=== PATIENT | female | born 1960 | race Caucasian/White ===

== ENCOUNTER 2022-01-29 01:15 | Emergency (ER) | payer OTHER, MEDICAID ==
[~2022-01-29] VITALS: Ht 170.2 cm; Wt 190.5 kg
[2022-01-29 01:18] VITALS: BP 113/59
--- NOTE | 2022-01-29 01:20 | NUR ---
PT BIBA BLS TO BED 06
--- NOTE | 2022-01-29 01:59 | NUR ---
61YR OLD FEMALE BIB EMS C/O CP ABD BACK PAIN . ABD MID GASTRIC PAIN STARTED 2 DAYS AGO WITH DIARRHEA AND VOMITING . 3/10 PAIN. PT STATES ABD PAIN RADIATES TO CHEST AND BACK DENIES SOB . 3/10 PAIN. RESP EVEN AND UNLABORED. SKIN PINK AND DRY. ON BEDSIDE MONITOR. HOB ELEVATED. SIDE RAILS UP X2 BED AT LOWEST POSITION
[2022-01-29] MEDS ORDERED: ONDANSETRON 4 MG/2 ML VIAL IVP ONE (03:05)
[2022-01-29] MEDS ORDERED: ASPIRIN 325 MG TAB PO ONE (03:05)
[2022-01-29 03:19] LABS: BASOPHILS # (AUTO) 0.1 K/uL (0.00-0.22); BASOPHILS % (AUTO) 0.4 % (0.0-2.0); EOSINOPHILS # (AUTO) 0.4 K/uL (0-0.4); EOSINOPHILS % (AUTO) 3.3 % (0.0-4.0); HEMATOCRIT 38.8 % (36-48); HEMOGLOBIN 12.6 g/dL (12.0-16.0); LYMPHOCYTES # (AUTO) 4.2 K/uL (2.5-16.5); LYMPHOCYTES % (AUTO) 34.1 % (20.5-51.1); MEAN CORPUSCULAR HEMOGLOBIN 29 pg (27-31); MEAN CORPUSCULAR HGB CONC 33 g/dL (33-37); MEAN CORPUSCULAR VOLUME 88.4 fL (80-94); MONOCYTES # (AUTO) 1.2 K/uL (0.8-1.0); MONOCYTES % (AUTO) 9.4 % (1.7-9.3); NEUTROPHILS # (AUTO) 6.5 K/uL (1.8-7.7); NEUTROPHILS % (AUTO) 52.8 % (42.2-75.2); PLATELET COUNT (AUTO) 174 K/uL (140-450); RED BLOOD CELL COUNT(AUTO) 4.39 MIL/uL (4.20-5.40); RED CELL DISTRIBUTION WIDTH 14.7 % (11.6-13.7); WHITE BLOOD COUNT (AUTO) 12.3 K/uL (4.8-10.8)
[2022-01-29 03:35] LABS: PROTHROMBIN TIME 9.6 secs (10.8-13.4)
[2022-01-29 04:07] LABS: ALBUMIN 2.9 g/dL (3.4-5.0); ANION GAP 16.9 (8-16); CARBON DIOXIDE 24.9 mmol/L (21-32); CREATININE 1.2 mg/dL (0.6-1.3); POTASSIUM 3.8 mmol/L (3.5-5.1); TOTAL BILIRUBIN 0.3 mg/dL (0.0-1.0)
--- NOTE | 2022-01-29 05:01 | NUR ---
PT IS SLEEPING RESP EVEN AND UNLABORED. PENDING TELEPSYCH MD. TELEMED SCREEN AT BEDSIDE
--- NOTE | 2022-01-29 05:30 | NUR ---
GIMP TACKER AT BEDSIDE
--- NOTE | 2022-01-29 05:45 | NUR ---
PT RESTING IN BED RESP EVEN AND UNLABORED. AM LABS DRAWN AT BEDSIDE. PT ON BEDSIDE MONITOR. WILL CONTINUE TO MONITOR PATIENT
[2022-01-29] MEDS ORDERED: AZITHROMYCIN 250 MG TAB PO ONE (05:55)
--- NOTE | 2022-01-29 07:30 | NUR ---
REPORT RECEIVED FROM SHENA GONSALEZ. ASSUMED CARE AT THIS TIME
[2022-01-29] MEDS ORDERED: FAMO-92 PO (07:45)
[2022-01-29] MEDS ORDERED: ONDA-188 SL (07:46)
--- NOTE | 2022-01-29 09:41 | NUR ---
PT REPORTS NEW ONSET OF 9/10 SHARP CHEST PAIN. MD MADE AWARE
[2022-01-29 10:15] VITALS: BP 138/85
--- NOTE | 2022-01-29 11:10 | NUR ---
PT ROOM MATE TO TIME STUDY ENGINEER PT
--- NOTE | 2022-01-29 11:17 | NUR ---
Patient discharged with v/s stable. Written and verbal after care instructions FOR NONSPECIFIC CHEST PAIN AND ABDOMINAL PAIN given and explained. Patient alert, oriented and verbalized understanding of instructions. Wheel Chair Assisted with to car. All questions addressed prior to discharge. ID band removed. Patient advised to follow up with PMD. Rx of PEPCID AND ZOFRAN given. Opportunity to ask questions provided and answered.
== END 2022-01-29 11:17 | disposition home or self-care (01) ==
LOC: MED 01:15
DX: R07.9 Chest pain, unspecified (principal); M54.50 Low back pain, unspecified; K29.70 Gastritis, unspecified, without bleeding; K21.9 Gastro-esophageal reflux disease without esophagitis; E03.9 Hypothyroidism, unspecified; I10 Essential (primary) hypertension; F31.9 Bipolar disorder, unspecified; I89.0 Lymphedema, not elsewhere classified; E66.01 Morbid (severe) obesity due to excess calories; Z79.84 Long term (current) use of oral hypoglycemic drugs; Z88.5 Allergy status to narcotic agent; Z88.1 Allergy status to other antibiotic agents; Z79.1 Long term (current) use of non-steroidal anti-inflammatories (NSAID); Z88.8 Allergy status to other drugs, medicaments and biological substances
CPT/HCPCS: 36415; 71045; 80053; 83880; 84484; 85025; 85610; 85730; 93005; 96374; 99285; J2405; Q0092

== ENCOUNTER 2022-02-18 10:02 | Emergency (ER) | payer OTHER, MEDICAID ==
[~2022-02-18] VITALS: Ht 170.2 cm; Wt 190.5 kg
[~2022-02-18 10:02] MED LIST: FAMO-92 PO; ONDA-188 SL
[2022-02-18 11:01] VITALS: BP 115/65
--- NOTE | 2022-02-18 11:22 | NUR ---
HUSAM COLLECTED AND WALKED TO LAB
--- NOTE | 2022-02-18 13:01 | NUR ---
61 Y.O F C/O COVID + TODAY AT HOME. PT HAS HAD A COUGH, SORE THROAT, CONGESTION AND FEVER YESTERDAY. DENIES CHILLS AND SOB. TOOK TYLENOL AND BENADRYL AT HOME LAST NIGHT. PT SAID SHE HAD PAIN FROM BED SORES TAHT SHE HAS. 02/13. A&OX4, SKIN INTACT, AND VITALS WNL FOR PT. ALLERGY: AMLODIPINE, CLINDAMYCIN, CODEINE, LISINOPRIL, VIOXX HX:HTN, LYMPHEDEMA
[2022-02-18] MEDS ORDERED: NIRM1TAB PO (13:27)
--- NOTE | 2022-02-18 14:58 | NUR ---
PT LEFT WITHOUT DISCHARGE INSTRUCTIONS.
== END 2022-02-18 14:58 | disposition home or self-care (01) ==
LOC: MED 10:02
DX: U07.1 COVID-19 (principal)
CPT/HCPCS: 71045; 99284

== ENCOUNTER 2022-06-20 18:01 | Emergency (ER) | payer OTHER, MEDICAID ==
[~2022-06-20] VITALS: Ht 170.2 cm; Wt 193.0 kg
[~2022-06-20 18:01] MED LIST changes: +NIRM1TAB PO
[2022-06-20 18:13] VITALS: BP 155/72
[2022-06-20 18:43] LABS: BASOPHILS % (AUTO) 0.3 % (0.0-2.0); EOSINOPHILS # (AUTO) 0.2 K/uL (0-0.4); HEMATOCRIT 40.7 % (36-48); HEMOGLOBIN 13.2 g/dL (12.0-16.0); LYMPHOCYTES # (AUTO) 2.3 K/uL (2.5-16.5); LYMPHOCYTES % (AUTO) 14.6 % (20.5-51.1); MEAN CORPUSCULAR HEMOGLOBIN 29 pg (27-31); MEAN CORPUSCULAR HGB CONC 32 g/dL (33-37); MEAN CORPUSCULAR VOLUME 89.2 fL (80-94); MONOCYTES # (AUTO) 1.1 K/uL (0.8-1.0); MONOCYTES % (AUTO) 7.1 % (1.7-9.3); NEUTROPHILS # (AUTO) 11.9 K/uL (1.8-7.7); PLATELET COUNT (AUTO) 246 K/uL (140-450); RED BLOOD CELL COUNT(AUTO) 4.57 MIL/uL (4.20-5.40); RED CELL DISTRIBUTION WIDTH 13.9 % (11.6-13.7); WHITE BLOOD COUNT (AUTO) 15.5 K/uL (4.8-10.8)
[2022-06-20 19:11] LABS: CARBON DIOXIDE 28.9 mmol/L (21-32); CREATININE 1.1 mg/dL (0.6-1.3); POTASSIUM 3.9 mmol/L (3.5-5.1); TOTAL BILIRUBIN 0.3 mg/dL (0.0-1.0)
[2022-06-20] MEDS ORDERED: FUROSEMIDE 40 MG/4 ML VIAL IVP ONE (19:45)
--- NOTE | 2022-06-20 19:45 | NUR ---
Patient lying in bed, A/Ox4, chest rise and fall symmetrical, no s/s of distress. Addendum: 06/20/22 at 2008 by [id number] Patient lying in bed, A/Ox4, chest rise and fall symmetrical, no s/s of distress, patient on monitor.
--- NOTE | 2022-06-20 19:53 | NUR ---
Dr. Marcelo verbally informed patient requested pain medication. Dr. Marcelo verbalized understanding and stated he "will speak with the patient."
--- NOTE | 2022-06-20 19:55 | NUR ---
ER physician, Dr. Marcelo speaking with patient.
[2022-06-20 20:20] VITALS: BP 123/65
--- NOTE | 2022-06-20 20:22 | NUR ---
Patient discharged with v/s stable. Written and verbal after care instructions given and explained. Patient verbalized understanding. Ambulatory with cane with steady gait. All questions addressed prior to discharge. Advised to follow up with PMD.
== END 2022-06-20 20:22 | disposition home or self-care (01) ==
LOC: MED 18:01
DX: R06.02 Shortness of breath (principal); Z20.822 Contact with and (suspected) exposure to COVID-19; I10 Essential (primary) hypertension; R53.1 Weakness; E03.9 Hypothyroidism, unspecified; Z79.899 Other long term (current) drug therapy; Z88.8 Allergy status to other drugs, medicaments and biological substances; Z88.5 Allergy status to narcotic agent; Z88.1 Allergy status to other antibiotic agents
CPT/HCPCS: 36415; 71045; 80053; 83880; 84484; 85025; 87426; 93005; 99285; Q0092